=== PATIENT | male | born 1960 | race Caucasian/White ===

== ENCOUNTER → 2021-02-09 | Outpatient (CLI) | payer MEDICARE ==
[~2021-02-09] MED LIST: PHENERGAN 12.12.5 MG PR; PHENERGAN 25 MG25 M1 PO
== END ==
LOC: KOH-I 10:01
DX: M54.2 Cervicalgia (principal); M50.81 Other cervical disc disorders, high cervical region; M47.812 Spondylosis without myelopathy or radiculopathy, cervical region; M48.02 Spinal stenosis, cervical region; M50.21 Other cervical disc displacement, high cervical region; Z98.1 Arthrodesis status
CPT/HCPCS: 72141

== ENCOUNTER → 2021-07-24 | Outpatient (CLI) | payer OTHER ==
[2021-07-24 15:08] LABS: BUN/CREATININE RATIO 13 (0-10)
== END ==
LOC: CT 14:28
PROVIDERS: Family Medicine
DX: R91.8 Other nonspecific abnormal finding of lung field (principal)
CPT/HCPCS: 71260; 80053; Q9967

== ENCOUNTER 2021-11-03 16:43 | Emergency (ER) | payer OTHER ==
[2021-11-03] MEDS ORDERED: IBUPROFEN600 MG PO (18:05)
[2021-11-03] MEDS ORDERED: HYDROCODON-ACE1 EAC2 PO (18:11)
== END 2021-11-03 18:35 | disposition home or self-care (01) ==
LOC: ER1 16:43
DX: S83.91XA Sprain of unspecified site of right knee, initial encounter (principal); Z85.01 Personal history of malignant neoplasm of esophagus; X50.9XXA Other and unspecified overexertion or strenuous movements or postures, initial encounter
CPT/HCPCS: 29530; 73562; 99283